=== PATIENT | female | born 1980 | race Caucasian/White ===

== ENCOUNTER 2016-11-15 22:12 | Emergency (ER) | payer MEDICARE ==
[2016-11-15 23:41] LABS: BASO % 0.3 % (0.1-1.2); EOS # 0.1 10_X3_uL (0.0-0.4); EOS % 0.8 % (0.7-5.8); GRAN # 4.7 10_X3_uL (1.6-6.1); HEMATOCRIT 41.8 % (34-45); LYMPH # 1.5 10_X3_uL (1.2-3.7); LYMPH % 22.3 % (19.3-51.7); MEAN CORPUSCULAR HEMOGLOBIN 28.6 pg (27.0-33.0); MEAN CORPUSCULAR HGB CONC 33.5 g/dL (32.0-36.0); MEAN CORPUSCULAR VOLUME 85.3 fL (79-95); MEAN PLATELET VOLUME 9.5 fl (7.5-11.5); MONO # 0.3 10_X3_uL (0.2-0.9); MONO % 4.6 % (4.7-12.5); PLATELET COUNT 345 x10_3/uL (182-369); RED CELL DISTRIBUTION WIDTH 12.9 % (11.7-14.4); WHITE BLOOD COUNT 6.5 x10_3/uL (4.0-10.0)
[2016-11-15 23:53] LABS: BLOOD UREA NITROGEN 8 mg/dL (7-18); CALCIUM 9.2 mg/dL (8.7-10.7); CARBON DIOXIDE 17 mmol/L (21-32); CREATININE 0.7 mg/dL (0.6-1.3); GLUCOSE,RANDOM 85 mg/dL (70-99); POTASSIUM 3.5 mmol/L (3.5-5.1); SODIUM 141 mmol/L (136-145)
== END 2016-11-16 02:03 | disposition home or self-care (01) ==
LOC: ER 22:12
PROVIDERS: General Practice
DX: R55 Syncope and collapse (principal); I49.9 Cardiac arrhythmia, unspecified; M79.605 Pain in left leg; Z79.899 Other long term (current) drug therapy
CPT/HCPCS: 36415; 70450; 73590; 80048; 80307; 81025; 85025; 93005; 99070; 99284-25

== ENCOUNTER 2017-01-16 13:47 | Emergency (ER) | payer MEDICARE | END 2017-01-16 15:40 | disposition home or self-care (01) | LOC: ER 13:47 | DX: J06.9 Acute upper respiratory infection, unspecified (principal); R11.2 Nausea with vomiting, unspecified; E03.9 Hypothyroidism, unspecified; Z79.899 Other long term (current) drug therapy | CPT/HCPCS: 99283 ==